=== PATIENT | female | born 1985 | race Caucasian/White ===

== ENCOUNTER 2017-12-23 14:00 | Inpatient (IN) | payer OTHER ==
[~2017-12-23] VITALS: Ht 157.5 cm; Wt 3.6 kg
[2017-12-30] MEDS ORDERED: LABETALOL HCL100 MG PO (07:43)
[2017-12-30] MEDS ORDERED: ASA81 MG PO (07:44)
[2017-12-30] MEDS ORDERED: PRENATAL PLUS1 EAC1 PO (07:45)
[2017-12-30] MEDS ORDERED: IRON1TAB4 PO (07:45)
[2018-01-02] MEDS ORDERED: SENNA8.6 MG PO (07:27)
[2018-01-02] MEDS ORDERED: PREPLUS CA-FE1 EACH PO (07:27)
[2018-01-02] MEDS ORDERED: DULCOLAX10 MG RECTAL (07:29)
[2018-01-02] MEDS ORDERED: IBUPROFEN600 MG PO (07:30)
== END 2018-01-02 14:53 | DRG 785 ==
LOC: OB/GYN 12-28 14:00 → O/R 12-30 07:01 → LDR 12-30 08:13 → O/R 12-30 14:05 → OB/GYN 12-30 15:47
PROVIDERS: Obstetrics & Gynecology
PROC: 0UL70ZZ Occlusion of Bilateral Fallopian Tubes, Open Approach (ICD-10-PCS; 2017-12-30)
PROC: 4A1HXCZ Monitoring of Products of Conception, Cardiac Rate, External Approach (ICD-10-PCS; 2017-12-30)
PROC: 10D00Z1 Extraction of Products of Conception, Low, Open Approach (ICD-10-PCS; principal; 2017-12-30 07:00)
DX: O82 Encounter for cesarean delivery without indication (principal); Z3A.40 40 weeks gestation of pregnancy; Z37.0 Single live birth; Z30.2 Encounter for sterilization

== ENCOUNTER 2017-12-27 01:21 | Outpatient (CLI) | payer OTHER | END 2017-12-27 12:54 | disposition home or self-care (01) | LOC: OBS/DEL 01:21 | DX: O47.1 False labor at or after 37 completed weeks of gestation (principal); Z34.83 Encounter for supervision of other normal pregnancy, third trimester ==